=== PATIENT | female | born 1995 | race Caucasian/White ===

== ENCOUNTER 2018-02-11 09:13 | Emergency (ER) | payer SELFPAY | END 2018-02-11 10:19 | disposition home or self-care (01) | LOC: D.ER 09:13 | DX: S61.012A Laceration without foreign body of left thumb without damage to nail, initial encounter (principal); W26.0XXA Contact with knife, initial encounter; Y93.G1 Activity, food preparation and clean up; Y92.89 Other specified places as the place of occurrence of the external cause ==

== ENCOUNTER 2019-02-18 21:42 | Emergency (ER) | payer SELFPAY ==
[~2019-02-18] VITALS: Ht 162.6 cm; Wt 59.1 kg
[2019-02-18 21:48] VITALS: BP 110/70; Ht 162.6 cm; Wt 59.1 kg
== END 2019-02-18 22:10 | disposition left against medical advice (07) ==
LOC: D.ER 21:42
DX: M79.671 Pain in right foot (principal)

== ENCOUNTER 2019-05-18 05:59 | Emergency (ER) | payer MEDICAID ==
[~2019-05-18] VITALS: Ht 162.6 cm; Wt 56.7 kg
[2019-05-18 06:02] VITALS: Ht 162.6 cm; Wt 56.7 kg
[2019-05-18] MEDS ORDERED: ULTRAM50 MG PO (06:35)
[2019-05-18] MEDS ORDERED: CILOXAN5 ML LEFT EYE (06:35)
[2019-05-18 06:49] VITALS: BP 130/79
== END 2019-05-18 06:48 | disposition home or self-care (01) ==
LOC: D.ER 05:59
DX: S05.92XA Unspecified injury of left eye and orbit, initial encounter (principal); X58.XXXA Exposure to other specified factors, initial encounter; Y93.89 Activity, other specified; Y92.89 Other specified places as the place of occurrence of the external cause; S00.12XA Contusion of left eyelid and periocular area, initial encounter